=== PATIENT | male | born 1940 | race Caucasian/White ===

== ENCOUNTER 2018-02-09 14:05 | Emergency (ER) | payer OTHER, MEDICARE ==
[2018-02-09] MEDS ORDERED: TETANUS & DIPHTHERIA TOX,ADULT 0.5 ML VIAL ONE (14:45)
[2018-02-09] MEDS ORDERED: DOXYCYCLINE 100 MG CAP PO ONE (14:45)
--- NOTE | 2018-02-09 14:46 | EDPHYS ---
Physician Documentation [facility] Name: Abdias Espinal Age: 77 yrs Sex: Male : 1940 Arrival Date: 02/09/2018 Time: 14:09 Bed 16 Private MD: ED Physician Maged Wyman HPI: 02/09 14:44 This 77 yrs old Male presents to ER via Ambulatory with complaints of snw Laceration To Hand. 14:44 The patient has a laceration related to: a puncture wound from a knife , occurred at [facility], and injury occurred at 2200 yesterday The injury was accidental. The laceration(s) is(are) located on the Left first web space. Onset: The symptoms/episode began/occurred suddenly, and became persistent bleeding controlled. Associated signs and symptoms: The patient has no apparent associated signs or symptoms. The patient has not experienced similar symptoms in the past. It is unknown whether or not the patient has recently seen a physician. Historical: - Allergies: 14:14 Lisinopril; hj 14:14 Allopurinol; hj - Home Meds: 14:14 BP meds [Active]; cholesterol meds [Active]; diabetic meds [Active]; gabapentin oral hj oral [Active]; - PMHx: 14:14 Hypertension; Hyperlipidemia; Diabetes - NIDDM; hj - PSHx: 14:14 Knee surgery; stent of aorta; hj - Immunization history:: Adult Immunizations not up to date. - Social history:: Smoking status: Patient/guardian denies using tobacco, Patient uses alcohol, on a daily basis. - Ebola Screening: : Patient negative for fever greater than or equal to 101.5 degrees Fahrenheit, and additional compatible Ebola Virus Disease symptoms Patient denies exposure to infectious person Patient denies travel to an Ebola-affected area in the 21 days before illness onset. ROS: 14:43 Constitutional: Negative for fever, chills, and weight loss, Eyes: Negative for injury, snw pain, redness, and discharge, ENT: Negative for injury, pain, and discharge, Neck: Negative for injury, pain, and swelling, Cardiovascular: Negative for chest pain, palpitations, and edema, Respiratory: Negative for shortness of breath, cough, wheezing, and pleuritic chest pain, Abdomen/GI: Negative for abdominal pain, nausea, vomiting, diarrhea, and constipation, Back: Negative for injury and pain, : Negative for injury, bleeding, discharge, and swelling, MS/Extremity: Negative for injury and deformity, Skin: Negative for rash and discoloration, + laceration to left first web space at 10pm yesterday. Exam: 14:42 Constitutional: This is a well developed, well nourished patient who is awake, alert, snw and in no acute distress. Head/Face: Normocephalic, atraumatic. Eyes: Pupils equal round and reactive to light, extra-ocular motions intact. Lids and lashes normal. Conjunctiva and sclera are non-icteric and not injected. Cornea within normal limits. Periorbital areas with no swelling, redness, or edema. ENT: Nares patent. No nasal discharge, no septal abnormalities noted. Tympanic membranes are normal and external auditory canals are clear. Oropharynx with no redness, swelling, or masses, exudates, or evidence of obstruction, uvula midline. Mucous membranes moist. Neck: Trachea midline, no thyromegaly or masses palpated, and no cervical lymphadenopathy. Supple, full range of motion without nuchal rigidity, or vertebral point tenderness. No Meningismus. Chest/axilla: Normal chest wall appearance and motion. Nontender with no deformity. No lesions are appreciated. Cardiovascular: Regular rate and rhythm with a normal S1 and S2. No gallops, murmurs, or rubs. Normal PMI, no JVD. No pulse deficits. Respiratory: Lungs have equal breath sounds bilaterally, clear to auscultation and percussion. No rales, rhonchi or wheezes noted. No increased work of breathing, no retractions or nasal flaring. Abdomen/GI: Soft, non-tender, with normal bowel sounds. No distension or tympany. No guarding or rebound. No evidence of tenderness throughout. Back: No spinal tenderness. No costovertebral tenderness. Full range of motion. MS/ Extremity: Pulses equal, no cyanosis. Neurovascular intact. Full, normal range of motion. Neuro: Awake and alert, GCS 15, oriented to person, place, time, and situation. Cranial nerves II-XII grossly intact. Motor strength 5/5 in all extremities. Sensory grossly intact. Cerebellar exam normal. Normal gait. Psych: Awake, alert, with orientation to person, place and time. Behavior, mood, and affect are within normal limits. 14:42 Skin: Appearance: normal except for affected area, injury, laceration(s), the wound is approximately 2 cm(s), with a depth of 1 cm(s), of the Left first web space. Vital Signs: 14:15 BP 161 / 68; Pulse 101; Resp 18; Temp 97.5(TE); Pulse Ox 97% on R/A; Weight 98.43 kg; hj Height 5 ft. 8 in. (172.72 cm); Pain 6/10; 14:15 Body Mass Index 32.99 (98.43 kg, 172.72 cm) hj MDM: 14:28 Patient medically screened. snw 14:48 Data reviewed: vital signs, nurses notes. Data interpreted: Pulse oximetry: on room air snw is 97 %. Interpretation: normal. Counseling: I had a detailed discussion with the patient and/or guardian regarding: the historical points, exam findings, and any diagnostic results supporting the discharge/admit diagnosis, the need for outpatient follow up, to return to the emergency department if symptoms worsen or persist or if there are any questions or concerns that arise at home. Special discussion: I discussed in detail with the patient the higher chance of wound infection based on his presenting history. Based on the history and exam findings, there is no indication for further emergent testing or inpatient evaluation. I discussed with the patient/guardian the need to see the primary care provider for further evaluation of the symptoms. 02/09 14:41 Order name: Wound dressing; Complete Time: 14:59 snw Administered Medications: 14:50 Drug: Tetanus-Diphtheria Toxoid Adult 0.5 ml {Alternative Dispute Resolution Mediator: [employer]. Exp: jl7 04/18/2020. Lot #: [id number]. } Route: IM; Site: right deltoid; 15:18 Follow up: Response: No adverse reaction jl7 14:58 Drug: Hibiclens 4 % 1 application Route: Topical; Site: affected area; jl7 15:18 Follow up: Response: No adverse reaction jl7 14:59 Drug: Doxycycline 100 mg Route: PO; jl7 15:18 Follow up: Response: No adverse reaction jl7 Disposition: 15:58 Co-signature as Attending Physician, Maged Wyman MD I agree with the assessment and kdr plan of care. Disposition: 02/09/18 14:46 Discharged to Home. Impression: Laceration without foreign body of left hand. - Condition is Stable. - Discharge Instructions: Delayed Wound Closure, Hypertension, Laceration Care, Adult, Non-Sutured Laceration, Wound Infection, VIS, Tetanus, Diphtheria (Td) - CDC. - Prescriptions for Doxycycline Hyclate 100 mg Oral Tablet - take 1 tablet by ORAL route every 12 hours; 20 tablet. - Medication Reconciliation Form, Thank You Letter, Antibiotic Education, Prescription Opioid Use form. - Follow up: Private Physician; When: 2 - 3 days; Reason: Recheck today's complaints, Continuance of care, Re-evaluation by your physician. Follow up: Emergency Department; When: As needed; Reason: Worsening of condition. Signatures: Maged Wyman MD MD [facility] [address] Aidee Lenz, EYEGLASS CUTTER-C EYEGLASS CUTTER-Csnw Emilio Carrington RN RN hj Jimbo Deleon RN RN jl7 Corrections: (The following items were deleted from the chart) 15:18 14:46 02/09/2018 14:46 Discharged to Home. Impression: Laceration without foreign body jl7 of left hand. Condition is Stable. Forms are Medication Reconciliation Form, Thank You Letter, Antibiotic Education, Prescription Opioid Use. Follow up: Private Physician; When: 2 - 3 days; Reason: Recheck today's complaints, Continuance of care, Re-evaluation by your physician. Follow up: Emergency Department; When: As needed; Reason: Worsening of condition. snw
--- NOTE | 2018-02-09 14:46 | ER ---
Nurse's Notes [facility] Name: Abdias Espinal Age: 77 yrs Sex: Male : 1940 Arrival Date: 02/09/2018 Time: 14:09 Bed 16 Private MD: Diagnosis: Laceration without foreign body of left hand Presentation: 02/09 14:11 Presenting complaint: Patient states: i was cutting a piece of rope and accidentally hj cut a part of my L hand in between my thumb and index finger, happened 10 pm last night; denies tingling or numbness; 12/27;. Transition of care: patient was not received from another setting of care. Complicating Factors: There are no complicating factors for this patient. Onset of symptoms was February 09, 2018. Risk Assessment: Do you want to hurt yourself or someone else? Patient reports no desire to harm self or others. Initial Sepsis Screen: Does the patient meet any 2 criteria? No. Patient's initial sepsis screen is negative. Does the patient have a suspected source of infection? No. Patient's initial sepsis screen is negative. Care prior to arrival: None. 14:11 Method Of Arrival: Ambulatory 14:11 Acuity: MIOL 4 hj Triage Assessment: 14:15 General: Appears in no apparent distress. uncomfortable, Behavior is calm, cooperative, hj appropriate for age. Pain: Complains of pain in Left first web space. Injury Description: Laceration. Historical: - Allergies: 14:14 Lisinopril; hj 14:14 Allopurinol; hj - Home Meds: 14:14 BP meds [Active]; cholesterol meds [Active]; diabetic meds [Active]; gabapentin oral hj oral [Active]; - PMHx: 14:14 Hypertension; Hyperlipidemia; Diabetes - NIDDM; hj - PSHx: 14:14 Knee surgery; stent of aorta; hj - Immunization history:: Adult Immunizations not up to date. - Social history:: Smoking status: Patient/guardian denies using tobacco, Patient uses alcohol, on a daily basis. - Ebola Screening: : Patient negative for fever greater than or equal to 101.5 degrees Fahrenheit, and additional compatible Ebola Virus Disease symptoms Patient denies exposure to infectious person Patient denies travel to an Ebola-affected area in the 21 days before illness onset. Screenin:15 Abuse screen: Denies threats or abuse. Denies injuries from another. Nutritional hj screening: No deficits noted. Tuberculosis screening: No symptoms or risk factors identified. Fall Risk None identified. Assessment: 14:15 Musculoskeletal: No signs and/or symptoms reported regarding the musculoskeletal hj system. Injury Description: Laceration. 14:30 General: Appears in no apparent distress. uncomfortable, Behavior is calm, cooperative, jl7 appropriate for age. Pain: Denies pain. Neuro: Level of Consciousness is awake, alert, obeys commands, Oriented to person, place, time, situation. Cardiovascular: Patient's skin is warm and dry. Respiratory: Airway is patent Respiratory effort is even, unlabored, Respiratory pattern is regular, symmetrical. GI: No signs and/or symptoms were reported involving the gastrointestinal system. : No signs and/or symptoms were reported regarding the genitourinary system. EENT: No signs and/or symptoms were reported regarding the EENT system. Derm: Skin is pink, warm \T\ dry. Injury Description: Laceration sustained to Left first web space is contaminated, 0.5 to 2.5 cm long, not bleeding, was sustained 12-24 hours ago. is bleeding no active bleeding noted. Vital Signs: 14:15 BP 161 / 68; Pulse 101; Resp 18; Temp 97.5(TE); Pulse Ox 97% on R/A; Weight 98.43 kg; hj Height 5 ft. 8 in. (172.72 cm); Pain 6/10; 14:15 Body Mass Index 32.99 (98.43 kg, 172.72 cm) ED Course: 14:09 Patient arrived in ED. mr 14:13 Triage completed. hj 14:15 Arm band placed on right wrist. hj 14:15 Patient has correct armband on for positive identification. Adult w/ patient. hj 14:28 Aidee Lenz FNP-C is PHCP. snw 14:28 Maged Wyman MD is Attending Physician. snw 14:38 Jimbo Deleon RN is Primary Nurse. jl7 15:10 No provider procedures requiring assistance completed. Patient did not have IV access jl7 during this emergency room visit. 15:10 Wound care: to laceration located on Left first web space was cleaned with Hibiclens, jl7 dressed with 4X4s. Administered Medications: 14:50 Drug: Tetanus-Diphtheria Toxoid Adult 0.5 ml {Mixer Operator Vacuum Pan Salt: [employer]. Exp: jl7 04/18/2020. Lot #: [id number]. } Route: IM; Site: right deltoid; 15:18 Follow up: Response: No adverse reaction jl7 14:58 Drug: Hibiclens 4 % 1 application Route: Topical; Site: affected area; jl7 15:18 Follow up: Response: No adverse reaction 14:59 Drug: Doxycycline 100 mg Route: PO; jl7 15:18 Follow up: Response: No adverse reaction jl7 Outcome: 14:46 Discharge ordered by . emilia 15:10 Discharged to home ambulatory. 15:10 Condition: stable 15:10 Discharge instructions given to patient, Instructed on discharge instructions, follow up and referral plans. medication usage, Demonstrated understanding of instructions, follow-up care, medications, Prescriptions given X 1. 15:18 Patient left the ED. jl7 Signatures: Aidee Lenz, DIRECTOR OF ALUMNI RELATIONS-C DIRECTOR OF ALUMNI RELATIONS-Morena Stewart Henry, RN RN Jimbo Dash RN RN jl7 Corrections: (The following items were deleted from the chart) 14:17 14:15 Pulse 101bpm; Resp 18bpm; Pulse Ox 97% RA; Temp 97.5F Temporal; 98.43 kg; Height hj 5 ft. 8 in.; BMI: 32.9; Pain 6/10; hj
== END 2018-02-09 15:18 | disposition home or self-care (01) ==
LOC: ER 14:05
DX: S61.412A Laceration without foreign body of left hand, initial encounter (principal); W26.0XXA Contact with knife, initial encounter; Y93.9 Activity, unspecified; Y92.019 Unspecified place in single-family (private) house as the place of occurrence of the external cause; Y99.9 Unspecified external cause status; Z88.8 Allergy status to other drugs, medicaments and biological substances; I10 Essential (primary) hypertension; E78.5 Hyperlipidemia, unspecified; E11.9 Type 2 diabetes mellitus without complications
CPT/HCPCS: 90714; 99283